=== PATIENT | female | born 1970 | race Caucasian/White ===

== ENCOUNTER 2022-02-23 10:11 | Day surgery (SDC) | payer OTHER ==
[~2022-02-23] VITALS: Ht 172.7 cm; Wt 100.7 kg
[~2022-02-23 10:11] MED LIST: ALBU90OI INH; CLARITIN10 MG PO; CYCL10 PO; FLUSAL1005; FLUSAL1005 INH; FLUSAL2505 INH; NAPR500EC PO; ONDA4 PO; OXYC5 PO
[2022-02-23] MEDS ORDERED: SYMBICORT 160-4.6 GM (10:33)
[2022-02-23] MEDS ORDERED: CETI5 (10:34)
== END 2022-02-23 12:45 | disposition home or self-care (01) ==
LOC: ORSCSDS 10:11
PROVIDERS: Internal Medicine Gastroenterology
PROC: 0DBM8ZX Excision of Descending Colon, Via Natural or Artificial Opening Endoscopic, Diagnostic (ICD-10-PCS; principal; 2022-02-23 11:30)
DX: Z12.11 Encounter for screening for malignant neoplasm of colon (principal); D12.4 Benign neoplasm of descending colon; J45.909 Unspecified asthma, uncomplicated; E66.9 Obesity, unspecified; Z68.34 Body mass index [BMI] 34.0-34.9, adult; Z79.899 Other long term (current) drug therapy
CPT/HCPCS: 88305; J2704; J7120